=== PATIENT | female | born 1940 | race Caucasian/White ===

== ENCOUNTER 2017-01-03 13:02 | Emergency (ER) | payer MEDICARE, OTHER ==
[2017-01-03 13:08] VITALS: RESP 18; TEMP 97.4
[2017-01-03 13:36] LABS: BASOPHILS % (AUTO) 1 % (0-3); EOSINOPHILS % (AUTO) 3 % (0-9); HEMATOCRIT 32 % (35-47); MEAN CORPUSCULAR HGB CONC 33.8 gm/dl (32.0-36.0); MEAN CORPUSCULAR VOLUME 84 fL (81-99); MONOCYTES % (AUTO) 19.4 % (0-12); NEUTROPHILS % (AUTO) 47.3 % (37-80)
[2017-01-03 13:55] LABS: ALBUMIN 3.1 gm/dl (3.4-5.0); ALT 34 IU/L (14-63); GLOM FILT RATE 40 mL/min (>60); POTASSIUM 4.4 mMol/L (3.5-5.1); SODIUM 141 mMol/L (136-145)
[2017-01-03] MEDS: SOLUMEDROL 125 MG/2 ML 125 MG/2 ML PDS IV ONE (14:30)
[2017-01-03] MEDS: AZITHROMYCIN 250 MG TAB PO ONE (15:30)
[2017-01-03] MEDS ORDERED: SOLUMEDROL 125 MG/2 ML 125 MG/2 ML PDS ONE (15:40)
[2017-01-03] MEDS ORDERED: AZITHROMYCIN 250 MG TAB ONE (15:56)
[2017-01-03 16:07] VITALS: BP 97/58; PULSE 114; O2SAT 93
== END 2017-01-03 16:06 | DRG 195 ==
LOC: ED 13:02
DX: J18.1 Lobar pneumonia, unspecified organism (principal); R06.09 Other forms of dyspnea
CPT/HCPCS: 36415; 71010; 80053; 83880; 84484; 85025; 99284; J2930

== ENCOUNTER 2017-05-22 21:52 | Inpatient (IN) | payer MEDICARE, OTHER ==
[2017-05-22] MEDS ORDERED: SODIUM CHLORIDE 0.9% 500 ML 500 ML IV ONE (21:56)
[2017-05-22 22:42] LABS: APPEARANCE,URINE Cloudy; BILIRUBIN,URINE NEGATIVE (NEGATIVE); COLOR,URINE Yellow; GLUCOSE, URINE (UA) NEGATIVE (NEGATIVE); KETONES,URINE NEGATIVE (NEGATIVE); LEUKOCYTE ESTERASE ,URINE 3+ (NEGATIVE); NITRATE,URINE POSITIVE (NEGATIVE); OCCULT BLOOD,URINE 2+ (NEG-TRACE); UROBILINOGEN,URINE 0.2 (0.2-1.0 EU)
[2017-05-22 23:00] LABS: RBC,URINE UNABLE (0-3AV/HPF); WBC,URINE TNTC (0-5AV/HPF)
[2017-05-22] MEDS ORDERED: SODIUM CHLORIDE 0.9% 1000ML 1,000 ML IV ONE (23:04)
[2017-05-22] MEDS ORDERED: LEVOFLOXACIN 25 MG/ML 750 MG in SODIUM CHLORIDE 0.9% 50 ML 50 ML IV ONE (23:10)
[2017-05-22] MEDS ORDERED: LEVOFLOXACIN 25 MG/ML SOL IV ONE (23:16)
[2017-05-22 23:43] LABS: BASOPHILS % (AUTO) 1 % (0-3); EOSINOPHILS % (AUTO) 3 % (0-9); HEMATOCRIT 27 % (35-47); MEAN CORPUSCULAR HGB CONC 32.5 gm/dl (32.0-36.0); MEAN CORPUSCULAR VOLUME 82 fL (81-99); MONOCYTES % (AUTO) 8.1 % (0-12); NEUTROPHILS % (AUTO) 72.2 % (37-80)
[2017-05-22 23:57] LABS: ALBUMIN 2.4 gm/dl (3.4-5.0); ALT 23 IU/L (14-63); CALCIUM 9.7 mg/dl (8.5-10.1); GLOM FILT RATE 32 mL/min (>60); POTASSIUM 4.6 mMol/L (3.5-5.1); SODIUM 142 mMol/L (136-145); THYROID STIMULATING HORMONE 0.225 uIU/ml (0.358-3.740)
[2017-05-23] MEDS ORDERED: NYSTATIN 1 GM POW TOP PRN (01:06)
[2017-05-23] MEDS ORDERED: BISACODYL 10 MG SUP PR PRN (01:06)
[2017-05-23] MEDS ORDERED: ALBUTEROL NEB SOL 2.5MG/3ML 1 VIAL SOL NEB PRN (01:06)
[2017-05-23] MEDS ORDERED: PEG-400/PROPYLENE GLYCOL 1 DROP SOL EACHEYE PRN (01:06)
[2017-05-23] MEDS ORDERED: DEXTROSE/SALINE 0.45/KCL 20MEQ 1,000 ML/1,000 ML SOL IV SCH (01:15)
[2017-05-23] MEDS ORDERED: LEVOFLOXACIN 25 MG/ML 750 MG in SODIUM CHLORIDE 0.9% 50 ML 50 ML IV SCH (01:15)
[2017-05-23 07:57] LABS: CALCIUM 9.7 mg/dl (8.5-10.1); POTASSIUM 4.6 mMol/L (3.5-5.1)
[2017-05-23 08:02] LABS: BASOPHILS % (AUTO) 1 % (0-3); EOSINOPHILS % (AUTO) 1 % (0-9); HEMATOCRIT 29 % (35-47); MEAN CORPUSCULAR VOLUME 82 fL (81-99); MONOCYTES % (AUTO) 4.6 % (0-12); NEUTROPHILS % (AUTO) 81.1 % (37-80)
[2017-05-23] MEDS ORDERED: SODIUM CHLORIDE 0.9% 1000ML 1,000 ML IV ONE (09:00)
[2017-05-23] MEDS ORDERED: DOCUSATE SODIUM 100 MG SGL PO SCH (09:00)
[2017-05-23] MEDS ORDERED: PANTOPRAZOLE SODIUM 40 MG ECT PO SCH (09:00)
[2017-05-23] MEDS ORDERED: VANCOMYCIN HCL 500 MG PDS 1,000 MG in SODIUM CHLORIDE 0.9% 250 ML 250 ML IV SCH (09:00)
[2017-05-23] MEDS ORDERED: ACETAMINOPHEN 325 MG PO PRN (09:00)
[2017-05-23] MEDS ORDERED: TIOTROPIUM BROMIDE 18 MCG CAP INH SCH (09:00)
[2017-05-23] MEDS ORDERED: MOXIFLOXACIN HCL OPHTH SOL LEFTEYE SCH (09:00)
[2017-05-23] MEDS ORDERED: FERROUS GLUCONATE 324 MG TABLET PO SCH (09:00)
[2017-05-23] MEDS ORDERED: PREGABALIN 50 MG CAP PO SCH (09:00)
[2017-05-23] MEDS ORDERED: SENNOSIDES A AND B 8.6 MG TAB PO SCH ×2 (09:00→21:00)
[2017-05-23] MEDS ORDERED: PIPERACILLIN/TAZOBACT 3.375 GM 3.375 GM in SODIUM CHLORIDE 0.9% 100 ML 100 ML IV SCH (09:00)
[2017-05-23] MEDS ORDERED: METFORMIN HYDROCHLORIDE 500 MG TAB PO SCH (09:00)
[2017-05-23] MEDS ORDERED: METOPROLOL TARTRATE 25 MG TAB PO SCH (09:00)
[2017-05-23] MEDS ORDERED: ENOXAPARIN 40 MG SOL SC SCH (09:00)
[2017-05-23] MEDS ORDERED: SIMVASTATIN 20 MG TAB PO SCH (09:00)
[2017-05-23] MEDS ORDERED: FOLIC ACID 400 MCG PO SCH (09:00)
[2017-05-23] MEDS ORDERED: PIPERACILLIN/TAZOBACT 3.375 GM PDS IV ONE (09:13)
[2017-05-23] MEDS ORDERED: VANCOMYCIN HYDROCHLORIDE 500 MG PDS IV ONE (09:14)
[2017-05-23] MEDS ORDERED: SODIUM CHLORIDE 0.9% 1000ML 1,000 ML IV SCH (09:15)
[2017-05-23] MEDS ORDERED: SODIUM CHLORIDE 0.9% 250 ML 250 ML IV ONE (09:16)
[2017-05-23] MEDS ORDERED: ACETAMINOPHEN 500 MG 500 MG TAB ONE (09:22)
[2017-05-23] MEDS ORDERED: ACETAMINOPHEN 500 MG 500 MG TAB PO PRN (09:24)
[2017-05-23] MEDS ORDERED: KETOROLAC TROMETHAMINE 30 MG/ML SOL IV STA (10:11)
[2017-05-23] MEDS ORDERED: KETOROLAC TROMETHAMINE 30 MG/ML SOL ONE (10:12)
[2017-05-23] MEDS ORDERED: SODIUM CHLORIDE 0.9% 500 ML 500 ML IV ONE ×2 (11:06→13:11)
[2017-05-23] MEDS ORDERED: NOVOLOG FLEXPEN SC SCH (11:30)
[2017-05-23] MEDS ORDERED: PHARMACOKINETICS 1 MISC PRN (13:13)
[2017-05-23 13:14] LABS: HEMATOCRIT 25 % (35-47); MEAN CORPUSCULAR HGB CONC 32.3 gm/dl (32.0-36.0)
[2017-05-23 13:17] LABS: MEAN CORPUSCULAR VOLUME 81 fL (81-99)
[2017-05-23 13:18] LABS: CALCIUM 8.5 mg/dl (8.5-10.1)
[2017-05-23 13:33] LABS: ANISOCYTOSIS SLIGHT; BASOPHILS % (MANUAL) 0 % (0-3); EOSINOPHILS % (MANUAL) 0 % (0-9); LYMPHOCYTES % (MANUAL) 4 % (10-50)
[2017-05-23 15:47] VITALS: BP 100/47; PULSE 92; RESP 24; TEMP 98.1; O2SAT 94
[2017-05-23] MEDS ORDERED: LEVOTHYROXINE SODIUM 137 MCG TAB PO SCH (21:00)
[2017-05-24] MEDS ORDERED: LEVOFLOXACIN 25 MG/ML 750 MG in SODIUM CHLORIDE 0.9% 50 ML 50 ML IV SCH (23:10)
== END 2017-05-23 15:01 | disposition short-term general hospital (02) | DRG 872 ==
LOC: ED 21:52 → ACUTE CARE 05-23 00:56
PROVIDERS: ADMIT Emergency Medicine; ATTEND Emergency Medicine
DX: A41.9 Sepsis, unspecified organism (principal); R40.2212 Coma scale, best verbal response, none, at arrival to emergency department; R40.2362 Coma scale, best motor response, obeys commands, at arrival to emergency department; R40.2132 Coma scale, eyes open, to sound, at arrival to emergency department; R29.717 NIHSS score 17; Z99.81 Dependence on supplemental oxygen; J44.9 Chronic obstructive pulmonary disease, unspecified; N30.01 Acute cystitis with hematuria
CPT/HCPCS: 36415; 70450; 71250; 80048; 80053; 81001; 82962; 84443; 84484; 85007; 85025; 85027; 87040; 87077; 87088; 87186; 93005; 93012; 96365; 99070; 99222; 99285; J1650; J1885; J1956; J2543; J3370; A9270-GY; J1815